=== PATIENT | male | born 1950 | race Caucasian/White ===

== ENCOUNTER 2017-06-27 10:51 | Day surgery (SDC) | payer MEDICARE, MEDICAID ==
[2017-06-25 10:26] VITALS: BMI 29.7
[2017-06-27] MEDS ORDERED: Ciprofloxacin 400mg/200ml D5W 0 MG/0 ML BAG IVPB ONE (13:08)
[2017-06-27] MEDS ORDERED: Lidocaine 2% Jelly (Uro-Jet) ONE (13:08)
[2017-06-27] MEDS ORDERED: Gentamicin 160 MG in Sodium Chloride 0.9% 100 ML IVPB ONE (13:12)
[2017-06-27] MEDS ORDERED: Midazolam 2 MG/2 ML VIAL ONE (13:15)
[2017-06-27] MEDS ORDERED: Propofol 10 mg/ml Inj (20 ML) ONE (13:15)
[2017-06-27] MEDS ORDERED: Lactated Ringer's 1,000 ML IV ONE (14:05)
[2017-06-27] MEDS ORDERED: HYDROmorphone 0.5 mg/0.5 ml ISec IVP PRN (14:18)
[2017-06-27] MEDS ORDERED: Lactated Ringer's 1,000 ML IV SCH (14:30)
[2017-06-27 15:30] VITALS: BP 108/70; PULSE 60; RESP 18; TEMP 97; O2SAT 100
--- NOTE | 2017-06-28 02:58 | OP ---
PROCEDURE DATE: PREOPERATIVE DIAGNOSIS: Elevated PSA, prostatic hypertrophy. POSTOPERATIVE DIAGNOSIS: Elevated PSA, prostatic hypertrophy. PROCEDURE: Prostatic biopsy and cysto. DESCRIPTION OF PROCEDURE: While the patient in lithotomy position and after starting anesthesia, genitalia prepped and draped in sterile fashion. The patient was given 1 gm of Rocephin and 160 mg of gentamicin. The penis and the rectum prepped and draped in sterile fashion. Ultrasound did not work well because of his previous history of colon surgery, and the picture was not clear so multiple biopsy taken from the right and the left side of the prostate. After that, the area was cleaned with Betadine. After changing gloves and gown, the cystoscopy revealed urethra normal, prostate showed moderate prostate with bilateral lobe enlargement causing partial obstruction. The area of the biopsy was seen in the prostate and no active bleeding. Bladder itself revealed no tumor, no stone. Dome, lateral wall within normal limits. Trigone within normal limits. The patient tolerated the procedure well. After emptying the bladder, the patient transferred in stable condition. Bradly Buckley MD
== END 2017-06-27 15:59 | disposition home or self-care (01) ==
LOC: C.SDS 10:51
PROVIDERS: ATTEND Specialist
DX: C61 Malignant neoplasm of prostate (principal); R97.20 Elevated prostate specific antigen [PSA]
CPT/HCPCS: 55700; 88305; 88342; J1580; J7120